=== PATIENT | female | born 1995 | race Caucasian/White ===

== ENCOUNTER 2020-01-23 21:21 | Emergency (ER) | payer MEDICAID, OTHER ==
[~2020-01-23] VITALS: Ht 167.6 cm; Wt 54.0 kg
[2020-01-23 22:24] LABS: CLARITY URINE CLOUDY (CLEAR); COLOR URINE YELLOW (YELLOW); KETONES URINE NEGATIVE (NEGATIVE); LEUKOCYTE ESTERASE URINE NEGATIVE (NEGATIVE); NITRITE URINE NEGATIVE (NEGATIVE); OCCULT BLOOD URINE NEGATIVE (NEGATIVE); PH URINE 6.5 (4.5-8.0); PROTEIN URINE NEGATIVE (NEGATIVE); SPECIFIC GRAVITY URINE 1.022 (1.005-1.030); UROBILINOGEN URINE 0.2 E.U./dL (0.2-1.0)
[2020-01-23] MEDS ORDERED: HYDROCODONE/ACETAMINOPHEN 5/325MG TABLET PO STA (23:33)
[2020-01-24 00:50] LABS: BASOPHILS % 0.8 % (0.0-2.0); EOSINOPHILS % 8.8 % (0.0-5.0); HEMOGLOBIN. 12.2 g/dL (12.0-16.0); LYMPHOCYTES % 33.5 % (20.0-50.0); MEAN CORPUSCULAR HEMOGLOBIN 27.8 pg (28.0-32.0); MEAN CORPUSCULAR VOLUME 84.3 fL (81.0-99.0); MEAN PLATELET VOLUME 8.3 fl (7.4-10.4); MONOCYTES % 11.4 % (2.0-8.0); NEUTROPHILS % 45.5 % (40.0-76.0); PLATELET 284 x1000/uL (130-400); RED BLOOD CELL COUNT 4.39 mill/uL (4.2-5.4); RED CELL DISTRIBUTION WIDTH 13.5 % (11.6-14.6)
[2020-01-24 00:58] LABS: CHLORIDE 107 mEq/L (98-107)
[2020-01-24 01:04] LABS: PROTHROMBIN TIME 10.7 sec (9.6-11.0)
[2020-01-24 03:20] VITALS: BP 117/76
== END 2020-01-24 03:20 | disposition home or self-care (01) ==
LOC: ER 21:21
DX: Z90.49 Acquired absence of other specified parts of digestive tract (principal)
CPT/HCPCS: 36415; 71045; 76705; 80053; 81003; 81025; 84484; 85025; 99285

== ENCOUNTER 2020-08-29 02:18 | Emergency (ER) | payer MEDICAID, OTHER ==
[~2020-08-29] VITALS: Ht 170.2 cm; Wt 60.6 kg
[2020-08-29 02:27] VITALS: BP 124/73
== END 2020-08-29 02:43 | disposition home or self-care (01) ==
LOC: ER 02:18
DX: H66.91 Otitis media, unspecified, right ear (principal)
CPT/HCPCS: 81025; 99283

== ENCOUNTER 2021-03-07 17:41 | Emergency (ER) | payer OTHER ==
[~2021-03-07] VITALS: Ht 167.6 cm; Wt 63.0 kg
[2021-03-07] MEDS ORDERED: FLUORESCEIN SODIUM 1MG/STRIP BOTHEYE ONE (19:00)
[2021-03-07] MEDS ORDERED: TETRACAINE 0.5% OPHTH DROPS 4ML BOTHEYE ONE (19:00)
[2021-03-07] MEDS ORDERED: CIPROFLOXACIN 0.3% OPHTH SOLN 2.5ML LEFTEYE ONE (19:15)
[2021-03-07 20:30] VITALS: BP 121/69
[2021-03-07] MEDS ORDERED: MOXI3DRO12 LEFTEYE (20:30)
== END 2021-03-07 20:35 | disposition home or self-care (01) ==
LOC: ER 17:41
DX: S05.02XA Injury of conjunctiva and corneal abrasion without foreign body, left eye, initial encounter (principal); F17.200 Nicotine dependence, unspecified, uncomplicated; Z90.49 Acquired absence of other specified parts of digestive tract; X58.XXXA Exposure to other specified factors, initial encounter; Y93.89 Activity, other specified; Y92.89 Other specified places as the place of occurrence of the external cause; Y99.8 Other external cause status
CPT/HCPCS: 99283

== ENCOUNTER 2022-10-15 00:51 | Emergency (ER) | payer MEDICAID, OTHER ==
[~2022-10-15] VITALS: Ht 167.6 cm; Wt 61.7 kg
[~2022-10-15 00:51] MED LIST: MOXI3DRO12 LEFTEYE
[2022-10-15 01:11] VITALS: BP 118/82
[2022-10-15] MEDS ORDERED: ONDANSETRON 4MG ODT PO ONE (04:00)
[2022-10-15] MEDS ORDERED: LORAZEPAM 1MG TABLET PO ONE (04:00)
== END 2022-10-15 04:02 | disposition home or self-care (01) ==
LOC: ER 00:51
DX: T43.651A Poisoning by methamphetamines accidental (unintentional), initial encounter (principal); F15.929 Other stimulant use, unspecified with intoxication, unspecified; R11.0 Nausea; R51.9 Headache, unspecified; G47.09 Other insomnia; F10.90 Alcohol use, unspecified, uncomplicated; Y90.9 Presence of alcohol in blood, level not specified; Y92.89 Other specified places as the place of occurrence of the external cause
CPT/HCPCS: 99281; Q0162

== ENCOUNTER 2023-05-03 | Emergency (ER) | payer OTHER ==
[~2023-05-03] VITALS: Ht 170.2 cm; Wt 63.5 kg
[2023-05-03 00:06] VITALS: BP 124/75
== END 2023-05-03 02:09 | disposition left against medical advice (07) ==
LOC: ER 00:36
DX: Z53.21 Procedure and treatment not carried out due to patient leaving prior to being seen by health care provider (principal)
CPT/HCPCS: 99281

== ENCOUNTER 2023-05-04 22:59 | Emergency (ER) | payer OTHER ==
[~2023-05-04] VITALS: Ht 167.6 cm; Wt 62.0 kg
[2023-05-04 23:38] VITALS: BP 127/83; PULSE 84; RESP 11; TEMP 98; O2SAT 100
== END 2023-05-05 03:03 | disposition left against medical advice (07) ==
LOC: ER 23:28
DX: Z53.21 Procedure and treatment not carried out due to patient leaving prior to being seen by health care provider (principal)
CPT/HCPCS: 99281

== ENCOUNTER 2025-07-24 22:41 | Emergency (ER) | payer MEDICAID, OTHER ==
[~2025-07-24] VITALS: Ht 167.6 cm; Wt 63.2 kg
[2025-07-24 23:01] VITALS: O2SAT 100
[2025-07-24 23:46] LABS: BASOPHILS % 0.5 % (0.0-2.0); EOSINOPHILS % 3.1 % (0.0-5.0); HEMATOCRIT. 33.8 % (36.0-48.0); HEMOGLOBIN. 10.7 g/dL (12.0-16.0); LYMPHOCYTES % 9.9 % (20.0-50.0); MEAN PLATELET VOLUME 8.1 fl (7.4-10.4); MONOCYTES % 7.6 % (2.0-8.0); NEUTROPHILS % 78.9 % (40.0-76.0); PLATELET 347 x1000/uL (130-400); RED BLOOD CELL COUNT 4.33 mill/uL (4.2-5.4); RED CELL DISTRIBUTION WIDTH 15.7 % (11.6-14.6)
[2025-07-24 23:58] LABS: CREATININE 0.6 mg/dL (0.6-1.0); UREA NITROGEN BLOOD 12 mg/dL (9-23)
[2025-07-25] MEDS: SODIUM CHLORIDE 0.9% 1,000 ML IV ONE (00:11)
[2025-07-25] MEDS: KETOROLAC 15MG/ML VIAL IV ONE (00:12)
[2025-07-25 00:18] LABS: HCG SCREEN NEGATIVE
[2025-07-25 00:59] LABS: INFLUENZA TYPE A Presumptive Negative (Pres. Neg.)
[2025-07-25 01:00] LABS: INFLUENZA TYPE B Presumptive Negative (Pres. Neg.)
[2025-07-25] MEDS ORDERED: NIRM1TAB11 PO (01:13)
[2025-07-25 01:21] VITALS: BP 130/83; PULSE 100; RESP 18; TEMP 36.9; O2SAT 98
[2025-07-27 12:35] LABS: RESPIRATORY SYNCYTIAL VIRUS Not Detected (Not Detectd)
== END 2025-07-25 01:32 | disposition home or self-care (01) ==
LOC: ER 22:41
DX: J06.9 Acute upper respiratory infection, unspecified (principal); B97.89 Other viral agents as the cause of diseases classified elsewhere; Z90.49 Acquired absence of other specified parts of digestive tract; Z20.822 Contact with and (suspected) exposure to COVID-19
CPT/HCPCS: 80048; 84703; 85025; 87420; 87804 ×2; 36415; 71045; 96361; 99284; 87426; 96374; J7030; J1885; Z7610